=== PATIENT | female | born 2000 | race Hispanic/Latino ===

== ENCOUNTER 2025-07-05 11:14 | Emergency (ER) | payer BC ==
[~2025-07-05] VITALS: Ht 160 cm; Wt 136.1 kg
--- NOTE | 2025-07-05 11:51 | ERN ---
General Chief Complaint: Flu Symptoms Stated Complaint: FLU SYMPTOMS Time Seen by MD: 11:17 Source: patient History of Present Illness Initial Comments Ms Vazquez, 25F came to the ED with a chief complaint of recurrent severe cough since yesterday. She reports she had been exposed to a co-worker who was diagnosed with influenza a week ago, and she started coughing since yesterday which was progressive and associated with lightheadedness and nausea. She did not use any medication and please she visited ED for influenza a testing. In the ED her cough was better, VITALS STABLE and had erythematous oropharynx and mild swollen turbinates. Timing/Duration: constant Severity: mild Associated Symptoms: cough, nausea/vomiting Allergies: Coded Allergies: No Known Drug Allergies (Unverified Allergy, Unknown, 07/05/25) Home Meds Active Scripts Guaifenesin/D-Methorphan Hb/PE (Robitussin Cough-Cold Cf Liq) 50 Mg-5 Mg-2.5 Mg/5 Ml Liquid, 5 ML PO Q8H for 5 Days, #75 ML 0 Refills Prov:DELBERT CIFUENTES MD 07/05/25 Amoxicillin (Amoxicillin) 500 Mg Tablet, 500 MG PO BID for 7 Days, #14 TAB Prov:DELBERT CIFUENTES MD 07/05/25 Past Medical History Past Medical History: No Pertinent History Past Surgical History: Appendectomy Female( History) LMP: Jul 05, 2025 : 0 Constitutional: (-) chills, (-) diaphoresis, (-) fever, (-) malaise, (-) weakness, (-) other documentation EENTM: (-) eye pain, (-) blurred vision, (-) tearing, (-) double vision, (-) ear pain, (-) ear discharge, (-) nose pain, (-) nose congestion, (-) throat pain, (-) Throat swelling, (-) mouth pain, (-) tooth pain, (-) mouth swelling, (-) other documentation Respiratory: (+) cough; (-) orthopnea, (-) short of breath, (-) stridor, (-) wheezing, (-) other documentation Cardiovascular: (-) chest pain, (-) edema, (-) palpitations, (-) syncope, (-) dyspnea on exertion, (-) other documentation Gastrointestinal/Abdominal: (+) nausea; (-) vomiting, (-) diarrhea, (-) abdominal pain, (-) abdominal distention, (-) constipation, (-) rectal bleeding, (-) dark stool/melena, (-) other documentation Genitourinary: (-) vaginal discharge, (-) vaginal bleeding, (-) dysuria, (-) frequency, (-) hematuria, (-) pain, (-) other documentation Musculoskeletal: (-) Neck pain, (-) back pain, (-) Flank Pain, (-) joint pain, (-) joint swelling, (-) muscle pain, (-) muscle stiffness, (-) gout, (-) other documentation Skin: (-) laceration, (-) contusion, (-) abrasion, (-) abscess, (-) rash, (-) c hange in color, (-) change in hair, (-) change in nails, (-) diaphoresis, (-) dryness, (-) other documentation Neuro: (+) dizziness Psych: (-) depression, (-) suicidal ideation, (-) anxiety, (-) emotional problems, (-) auditory hallucinations, (-) visual hallucinations Immunological/Allergic: (-) food allergy, (-) grass allergy, (-) mold allergy, (-) pollen allergy, (-) HIV/AIDS, (-) transplant, (-) othe documentation Review of Systems: was completed, & the rest were negative. Physical Exam General Appearance: (+) mild distress Orientation: (+) alert, (+) oriented x 3 Head/Face Trauma: No Eye: bilateral eye normal inspection Ear, Nose, Throat: (+) pharyngeal erythema, (+) sinus pain Neck: (+) normal inspection Respiratory: (+) chest non-tender, (+) lungs clear Heart: (+) regular, (+) no gallop Vascular: (+) no edema, (+) normal peripheral pulse Gastrointestinal: (+) soft, (+) non-tender, (+) no organomegaly, (+) bowel sound present Breast Exam: (+) deferred Genital: (+) deferred Rectal: (+) deferred Back: (+) normal inspection Extremities: (+) normal range of motion, (+) non-tender, (+) normal inspection Neurologic/Psychiatric: (+) normal speech, (+) no motor defecits, (+) no sensory deficits, (+) normal gait, (+) normal mood/affect Skin: (+) normal color Results Laboratory and Microbiology Labs Reviewed?: Yes MDM Differential diagnosis: Acute Rhinosinusitis Patient presented to the ED with history of severe cough since 1 day. In the ED we examined her vitals, vitals stable On physical examination the oropharynx is erythematous with no abnormal lung sounds She is stable and can be discharged on amoxicillin 500 mg b.i.d. for 7 days and Robitussin5 mL q.i.d. She can follow up with her PCP for further care. ED Course Vital Signs Date Time Temp Pulse Resp B/P (MAP) Pulse Ox O2 Delivery O2 Flow Rate FiO2 07/05/25 12:01 97.5 104 20 132/88 98 Room Air* 0 21 07/05/25 11:17 98.1 94 18 112/76 98 Room Air 0 DX & DISP Disposition: Discharge Departure Impression: Primary Impression: Acute rhinosinusitis Critical Time: 30 minutes Condition: Stable Scripts Guaifenesin/D-Methorphan Hb/PE (Robitussin Cough-Cold Cf Liq) 50 Mg-5 Mg-2.5 Mg/5 Ml Liquid 5 ML PO Q8H for 5 Days, #75 ML 0 Refills Prov: DELBERT CIFUENTES MD 07/05/25 Amoxicillin (Amoxicillin) 500 Mg Tablet 500 MG PO BID for 7 Days, #14 TAB Prov: DELBERT CIFUENTES MD 07/05/25 Additional Instructions: Take supportive care(fluids, rest, humidifier, OTC cough meds as needed) and avoid smoking Symptoms may take 1-2 weeks to improve, return if fever or cough worsens Go to ER immediately for chest pain, high fever, bloody sputum or if symptoms worsen rapidly Referrals: NONE (PCP) EVELIO ELLIS MD Time of Disposition: 12:14 DELBERT CIFUENTES MD Jul 05, 2025 11:51 ALEXANDRIA MORELAND MD Jul 05, 2025 12:14
[2025-07-05 12:01] VITALS: BP 132/88; PULSE 104; RESP 20; TEMP 97.5; O2SAT 98
== END 2025-07-05 12:14 | disposition home or self-care (01) ==
LOC: EDH 11:14
DX: J01.90 Acute sinusitis, unspecified (principal); E84.9 Cystic fibrosis, unspecified; Z90.49 Acquired absence of other specified parts of digestive tract
CPT/HCPCS: 99283